=== PATIENT | female | born 2000 | race Caucasian/White ===

== ENCOUNTER 2022-03-12 21:02 | Emergency (ER) | payer SELFPAY ==
[~2022-03-12] VITALS: Ht 160 cm; Wt 71.3 kg
[~2022-03-12 21:02] MED LIST: AMOXICILLIN500 MG PO; KEFLEX250 MG/5 M PO; MOTRIN100 MG/5 M PO
[2022-03-12 22:09] LABS: BILIRUBIN Negative (Negative); BLOOD Negative (Negative); CLARITY Clear (Clear); COLOR Yellow (Yellow); GLUCOSE Negative (Negative); KETONE Negative (Negative); LEUKO ESTERASE Negative (Negative); NITRITE Negative (Negative)
[2022-03-12 22:21] LABS: BACTERIA 1+
[2022-03-13] MEDS ORDERED: AMOXICILLIN500 M2 PO (00:27)
== END 2022-03-13 00:41 | disposition home or self-care (01) ==
LOC: ED 21:02
PROVIDERS: Emergency Medicine
DX: S01.512A Laceration without foreign body of oral cavity, initial encounter (principal); S96.911A Strain of unspecified muscle and tendon at ankle and foot level, right foot, initial encounter; W18.39XA Other fall on same level, initial encounter; Y93.89 Activity, other specified; Y92.89 Other specified places as the place of occurrence of the external cause; Y99.8 Other external cause status

== ENCOUNTER 2022-07-25 20:21 | Emergency (ER) | payer MEDICAID ==
[~2022-07-25] VITALS: Ht 160 cm; Wt 72.6 kg
[~2022-07-25 20:21] MED LIST changes: +AMOXICILLIN500 M2 PO
[2022-07-25 20:51] LABS: BILIRUBIN Negative (Negative); BLOOD Negative (Negative); CLARITY Clear (Clear); COLOR Yellow (Yellow); GLUCOSE Negative (Negative); KETONE Negative (Negative); LEUKO ESTERASE Negative (Negative); NITRITE Negative (Negative); SPECIFIC GRAVITY <= 1.005 (1.001-1.030)
[2022-07-25 21:18] LABS: BACTERIA TRACE; EPITHELIAL CELLS 0-2
[2022-07-25] MEDS ORDERED: AMOXICILLIN500 M2 PO (21:28)
== END 2022-07-25 21:31 | disposition home or self-care (01) ==
LOC: ED 20:21
PROVIDERS: Nurse Practitioner Family
DX: O23.42 Unspecified infection of urinary tract in pregnancy, second trimester (principal); Z88.8 Allergy status to other drugs, medicaments and biological substances; Z3A.20 20 weeks gestation of pregnancy

== ENCOUNTER 2022-08-02 20:16 | Emergency (ER) | payer MEDICAID ==
[~2022-08-02] VITALS: Ht 160 cm; Wt 72.6 kg
[2022-08-02 20:50] LABS: BILIRUBIN Negative (Negative); BLOOD Negative (Negative); CLARITY Cloudy (Clear); COLOR Yellow (Yellow); GLUCOSE Negative (Negative); KETONE Negative (Negative); LEUKO ESTERASE Negative (Negative); NITRITE Negative (Negative)
[2022-08-02 21:57] LABS: PH 8.5 (4.5-8.0)
[2022-08-02 21:59] LABS: BACTERIA TRACE; WBC 0-2 wbc/hpf (0-5)
== END 2022-08-02 23:27 | disposition home or self-care (01) ==
LOC: ED 20:16
PROVIDERS: Nurse Practitioner Family
DX: O26.891 Other specified pregnancy related conditions, first trimester (principal); R30.0 Dysuria; Z3A.20 20 weeks gestation of pregnancy; Z88.8 Allergy status to other drugs, medicaments and biological substances

== ENCOUNTER 2024-02-01 22:05 | Emergency (ER) | payer MEDICAID ==
[~2024-02-01] VITALS: Ht 160 cm; Wt 61.2 kg
== END 2024-02-01 22:30 | disposition home or self-care (01) ==
LOC: ED 22:05
DX: H65.93 Unspecified nonsuppurative otitis media, bilateral (principal); J45.909 Unspecified asthma, uncomplicated; Z88.8 Allergy status to other drugs, medicaments and biological substances

== ENCOUNTER 2024-12-26 12:34 | Emergency (ER) | payer MEDICAID ==
[~2024-12-26] VITALS: Ht 160 cm; Wt 68.0 kg
[2024-12-26] MEDS ORDERED: AMOXICILLIN500 M2 PO (13:05)
[2024-12-26 16:07] LABS: BASO # 0.0 10*3/uL (0.0-0.1); BASO % 0.3 % (0.0-1.0); EOS # 0.0 10*3/uL (0.0-0.4); EOS % 0.4 % (1.0-4.0); MEAN CELL VOLUME 87.9 fl (81.0-99.0); MEAN CORPUSCULAR HGB 29.4 pg (27.0-31.0); MEAN PLATELET VOLUME 10.7 fl (9.6-12.3); MONO # 0.5 10*3/uL (0.1-1.0); MONO % 7.3 % (3.0-9.0); NEUT # 4.4 10*3/uL (2.3-7.9); NEUT % 65.7 % (47.0-73.0); NUCLEATED RED BLOOD CELL 0.0 % (0.0-0.0); NUCLEATED RED BLOOD CELL 0.0 10*3/uL (0.0-0.0); PLATELET COUNT AUTOMATED 259 10*3/uL (130-400); RED CELL DISTRI WIDTH 11.9 % (0-14.5)
[2024-12-26 16:27] LABS: BUN 5 mg/dl (9-23)
[2024-12-26] MEDS ORDERED: AZITHROMYCIN 250 MG TAB PO ONE (16:45)
[2024-12-28] MEDS ORDERED: AMOX-CLAV 875-1 EACH PO (14:29)
== END 2024-12-26 16:57 | disposition home or self-care (01) ==
LOC: ED 12:34
PROVIDERS: Nurse Practitioner Family
DX: H66.93 Otitis media, unspecified, bilateral (principal); J32.9 Chronic sinusitis, unspecified; J45.909 Unspecified asthma, uncomplicated; Z79.899 Other long term (current) drug therapy; Z88.8 Allergy status to other drugs, medicaments and biological substances

== ENCOUNTER 2025-01-30 00:28 | Emergency (ER) | payer MEDICAID ==
[~2025-01-30] VITALS: Ht 160 cm; Wt 72.6 kg
[~2025-01-30 00:28] MED LIST changes: +AMOX-CLAV 875-1 EACH PO
[2025-01-30] MEDS ORDERED: PREDNISONE20 M1 PO (00:47)
== END 2025-01-30 01:00 | disposition home or self-care (01) ==
LOC: ED 00:28
DX: H93.8X9 Other specified disorders of ear, unspecified ear (principal); J45.909 Unspecified asthma, uncomplicated; Z79.899 Other long term (current) drug therapy; Z88.8 Allergy status to other drugs, medicaments and biological substances